=== PATIENT | female | born 1990 | race Caucasian/White ===

== ENCOUNTER 2017-05-24 16:59 | Emergency (ER) | payer SELFPAY ==
[~2017-05-24] VITALS: Ht 157.5 cm; Wt 163.3 kg
[~2017-05-24 16:59] MED LIST: CIPRO 500MG TA500 MG PO; PAROXETINE HCL20 MG PO
[2017-05-24 17:21] LABS: URINE BILIRUBIN - DIPSTICK NEGATIVE (NEG); URINE BLOOD NEGATIVE (NEG)
--- OUTSIDE RECORDS SUMMARY | 2017-05-24 17:40 | External Medical Summary Rpt ---
Author Author , MANSI Tinajero ALMAJOSEY Address Unknown Phone [email or web address] (Mobile Payments) Care Team Providers Care Administrative Support Coordinator Name Role Phone BHAVANI ROMERO, BHAVANI Unavailable Unavailable HEATHER BHAVANI HEATHER, BHAVANI Unavailable Unavailable HEATHER JENNY KRUGER, JENNY Unavailable Unavailable BET ELOISA TER, ELOISA PHAM Unavailable Unavailable [facility], Unavailable Unavailable [facility] COMMUNITY ANESTH OF Unavailable Unavailable [facility], ELIZABETH Unavailable Unavailable [facility] Unavailable Unavailable INC, [facility], Unavailable Unavailable [facility] Unavailable Unavailable IMAGING ASS, [facility], Unavailable Unavailable [facility] Unavailable Unavailable [facility] Unavailable [facility] PICKJAYLYN ORTIZ, Unavailable Unavailable [employer] JR DIANA ABDULLAHI TOD, ABDULLAHI TOD Unavailable Unavailable [id number], Unavailable Unavailable [id number] [email or web address] [facility] Unavailable Unavailable [facility] [email or web address] [facility] Unavailable Unavailable [facility] [email or web address] [facility] Unavailable Unavailable DEPARTMENT, [facility] KELLI CASTELAN, Unavailable Unavailable JOSE DANIEL LINDQUIST Unavailable Unavailable APARNA DUKE, Unavailable Unavailable APARNA DUKE Purpose Continuity of Care Document - 01-27-2009 through 2016 Problems Code Diagnosis DOS Provider Status [id number] ENCOUNTER 04-20-2016 [facility], RN ENDOSCOPY EXAM LLC GENERAL RTN W/O ABNORMAL FIND Z113 ENCOUNTER 04-20-2016 [facility], SCREEN LLC INFECTIONS SEXL MODE TRANSMISSN Z3009 ENCOUNTER 04-20-2016 [facility] OT GENERAL PHYSICIANS GROUP BLINDSTITCH LAPEL PADDER&ADV ICE CONTRACEPT K529 NONINFECTIV 08-12-2015 [facility] E PHYSICIANS GASTROENTER GROUP ITIS & COLITIS UNS M549 DORSALGIA 08-12-2015 [facility] UNSPECIFIED PHYSICIANS GROUP 14946 CALCU 04-16-2015 [facility], GALLBLADD LLC W/OTH CHOLECYST W/O MENTION OBST 55770 CHOLECYSTIT 04-16-2015 COMMUNITY IS, ANESTH OF UNSPECIFIED THE BLUE V7283 OTHER 04-08-2015 [facility] PRE-OPERATI INC VE EXAMINATION 56887 CALCU 03-31-2015 MURALI GALLBLADD MEDICAL W/O MENTION IMAGING ASS CHOLECYST/O BST 45986 ABDOMINAL 03-31-2015 [place], MEDICAL UNSPECIFIED IMAGING ASS SITE 53740 ABDOMINAL 03-31-2015 [facility] RIGHT [facility] UPPER INC QUADRANT 31322 ESOPHAGEAL 03-26-2015 [facility] REFLUX PHYSICIANS GROUP 43322 ABDOMINAL 03-25-2015 [facility] PAIN, [facility] EPIGASTRIC INC V2549 SURVEILLANC 05-23-2014 [facility] PREV CO HEALTH PRSC DEPARTME CONTRACEPT METHOD 94050 GENERALIZED 05-08-2014 [facility] ANXIETY PRIMARY DISORDER CARE CENTER V7231 ROUTINE 04-14-2014 [facility] GYNECOLOGIC CO HEALTH AL DEPARTME EXAMINATION 50000 OBESITY, 01-03-2014 BHAVANI ROMERO UNSPECIFIED 21272 OSTEOARTHRO 01-03-2014 BHAVANI ROMERO S INVLV MX SITES BUT NOT SPEC GEN V0481 NEED 08-12-2009 [facility]/CO PROPHYLACTI HEALTH C CENTRAL VACCINATION BANK ACCT &INOCULATIO N FLU 4019 UNSPECIFIED 03-26-2009 [facility] ESSENTIAL [facility] HYPERTENSIO INC N 49489 CHRONIC 03-26-2009 LAY, TONSILLITIS PETER Manning 4779 ALLERGIC 03-16-2009 ROSANNE RHINITIS PETER Manning CAUSE UNSPECIFIED 1123 CANDIDIASIS 01-27-2009 [facility] OF SKIN PRIMARY AND NAILS CARE CENTERINC 6235 LEUKORRHEA 01-27-2009 [facility] NOT PRIMARY SPECIFIED CARE CENTERINC INFECTIVE V0489 NEED PROPH 01-27-2009 [facility] VACCINATION PRIMARY &INOCULAT CARE OT VIRAL CENTERINC DZ Medications Na ND Rx Da Fi Fi Am Da Di Ph RX Ph St me C No te ll ll ou ys ag ar # ys at rm s nt no ma ic us Or Da si cy ia de te s n re d TR 52 04 11 03 28 28 CO 64 GA Ac IN 54 -2 -1 .0 LO 79 NT ti ES 40 1- 9- 00 NI 29 LE ve SA 24 20 20 AL 0 Y 82 09 09 JA TA 8 NA BL LL R ET AG E PH M TR 00 04 09 02 28 28 CO 64 GA Ac I- 55 -2 -2 .0 LO 79 NT ti SP 59 1- 4- 00 NI 29 LE ve RI 01 20 20 AL 0 Y NT 85 09 09 JA EC 8 NA LL R TA AG BL E ET PH M TR 00 04 07 01 28 28 CO 64 GA Ac I- 55 -2 -1 .0 LO 79 NT ti SP 59 1- 6- 00 NI 29 LE ve RI 01 20 20 AL 0 Y NT 85 09 09 JA EC 8 NA LL R TA AG BL E ET PH M 00 06 07 00 30 7 RI 78 LA Ac 40 -1 -0 .0 TE 87 WS ti 60 8- 2- 00 41 ON ve 35 20 20 AI 80 [address] AR OR M G #3 93 8 00 06 07 01 30 7 RI 78 LA Ac 40 -1 -0 .0 TE 87 WS ti 60 8- 2- 00 41 ON ve 35 20 20 AI 80 [address] AR OR M G #3 93 8 TR 00 04 05 00 28 28 CO 64 GA Ac I- 55 -2 -0 .0 LO 79 NT ti SP 59 1- 7- 00 NI 29 LE ve RI 01 20 20 AL 0 Y NT 85 09 09 JA EC 8 NA LL R TA AG BL E ET PH M 67 04 05 00 60 30 CO 64 GA Ac 76 -2 -0 .0 LO 79 NT ti 70 1- 7- 00 NI 29 LE ve 11 20 20 AL 1 Y 21 09 09 JA 5 NA LL R AG E PH M Immunization Name Date Rout CVX Reac Dose Comm Prov Is Faci e tion ent ider Refu lity Give sed n IIV3 11-0 141 ROBE No DHS/ 4-20 [facility] CO VACC 09 N CO HEAL INE TH SPLI HEAL CENT T TH RAL VIRU DEPA BANK S RTME 0.5 NT ACCT ML DOSA GE IM USE Results Labs Lab Lab Date Result Refere Interp Status Commen Order Detail nces retati t Range on Urinalysis macro (dipstick) panel in Urine (03-05-2017 19:23) Appeara Clear CLEAR complet nce of 017 ed Urine 19:23 Bilirub NEGATIV NEG complet in 017 E ed [Presen 19:23 ce] in Urine by Test strip Erythro SMALL NEG complet cytes 017 ed [Presen 19:23 ce] in Urine Color YELLOW YELLOW complet of 017 ed Urine 19:23 Ketones NEGATIV NEG complet 017 E ed [Presen 19:23 ce] in Urine by Automat ed test strip Leukocy TRACE NEG Abnorma complet te 017 l ed esteras 19:23 e [Presen ce] in Urine by Automat ed test strip Nitrite NEGATIV NEG complet 017 E ed [Presen 19:23 ce] in Urine by Test strip Urobili 0.2 NEG complet nogen 017 ed [Presen 19:23 ce] in Urine by Test strip CHLAMYDIA AND GONORRHEA TESTING (04-14-2014 09:10) Chlamyd NEGATIV complet ia 014 E ed trachom 09:10 atis rRNA [Presen ce] in Unspeci fied specime n by Probe & target amplifi cation method Neisser NEGATIV complet ia 014 E ed gonorrh 09:10 oeae rRNA [Presen ce] in Unspeci fied specime n by Probe & target amplifi cation method CHLAMYDIA AND GONORRHEA TESTING (04-14-2014 09:10) COLLECT D complet OR 014 ALAN ed 09:10 PROCESS CONTROLLER ETHNICI WHITE, complet TY 014 NON-HIS ed 09:10 PANIC KIT 10/23 complet EXPIRAT 014 ed ION 09:10 DATE SYMPTOM YES complet S 014 ed 09:10 REASON REVISIT complet FOR 014 /ANNUAL ed REQUEST 09:10 FAMILY PLANNIN G VISIT SPECIME FEMALE complet N 014 ENDOCER ed SOURCE 09:10 VICAL PREGNAN NO complet T 014 ed 09:10 CHART [id number] complet NUMBER 014 02 ed 09:10 Chlamyd Pending complet ia 014 ed trachom 09:10 atis rRNA [Presen ce] in Unspeci fied specime n by Probe & target amplifi cation method Neisser Pending complet ia 014 ed gonorrh 09:10 oeae rRNA [Presen ce] in Unspeci fied specime n by Probe & target amplifi cation method CHLAMYDIA AND GONORRHEA TESTING (04-22-2013 10:45) Chlamyd NEGATIV complet ia 013 E ed trachom 10:45 atis rRNA [Presen ce] in Unspeci fied specime n by Probe & target amplifi cation method Neisser NEGATIV complet ia 013 E ed gonorrh 10:45 oeae rRNA [Presen ce] in Unspeci fied specime n by Probe & target amplifi cation method CHLAMYDIA AND GONORRHEA TESTING (04-22-2013 10:45) COLLECT D complet OR 013 ALAN ed 10:45 PROCESS CONTROLLER ETHNICI WHITE, complet TY 013 NON-HIS ed 10:45 PANIC KIT complet EXPIRAT 013 3 ed ION 10:45 DATE SYMPTOM NO complet S 013 ed 10:45 REASON REVISIT complet FOR 013 /ANNUAL ed REQUEST 10:45 FAMILY PLANNIN G VISIT SPECIME FEMALE complet N 013 ENDOCER ed SOURCE 10:45 VICAL PREGNAN NO complet T 013 ed 10:45 CHART [id number] complet NUMBER 013 02 ed 10:45 Chlamyd Pending complet ia 013 ed trachom 10:45 atis rRNA [Presen ce] in Unspeci fied specime n by Probe & target amplifi cation method Neisser Pending complet ia 013 ed gonorrh 10:45 oeae rRNA [Presen ce] in Unspeci fied specime n by Probe & target amplifi cation method CHLAMYDIA AND GONORRHEA TESTING (04-16-2012 10:15) Chlamyd NEGATIV complet ia 012 E ed trachom 10:15 atis rRNA [Presen ce] in Unspeci fied specime n by Probe & target amplifi cation method Neisser NEGATIV complet ia 012 E ed gonorrh 10:15 oeae rRNA [Presen ce] in Unspeci fied specime n by Probe & target amplifi cation method CHLAMYDIA AND GONORRHEA TESTING (04-16-2012 10:15) COLLECT D complet OR 012 ALAN ed 10:15 PROCESS CONTROLLER ETHNICI WHITE, complet TY 012 NON-HIS ed 10:15 PANIC KIT 09 complet EXPIRAT 012 ed ION 10:15 DATE SYMPTOM NO complet S 012 ed 10:15 REASON REVISIT complet FOR 012 /ANNUAL ed REQUEST 10:15 FAMILY PLANNIN G VISIT SPECIME FEMALE complet N 012 ENDOCER ed SOURCE 10:15 VICAL PREGNAN NO complet T 012 ed 10:15 CHART [id number] complet NUMBER 012 02 ed 10:15 Chlamyd Pending complet ia 012 ed trachom 10:15 atis rRNA [Presen ce] in Unspeci fied specime n by Probe & target amplifi cation method Neisser Pending complet ia 012 ed gonorrh 10:15 oeae rRNA [Presen ce] in Unspeci fied specime n by Probe & target amplifi cation method Procedures Procedure DOS Code Location Performer Comment IADNA 81588 [facility] PICKLESIM NEISSERIA 6 LLC ER JR DIANA GONORRHOE AE AMPLIFIED PROBE TQ IADNA 68952 [facility] PICKLESIM CHLAMYDIA 6 LLC ER JR DIANA TRACHOMAT IS AMPLIFIED PROBE TQ CYTP C/V 00568 [facility], [facility] AUTO THIN 6 LLC ER JR DIANA LYR PREPJ SCR MNL RESCR PHYS INJECTION J2710 [facility] NEOSTIGMI INC INC NE METHYLSUL FATE UP TO 0.5 MG GLUC BLD 90329 [facility] GLUC MNTR 5 [facility] DEV INC INC CLEARED FDA SPEC HOME USE LAPAROSCO 22272 [facility] ABDULLAHI TOD PY SURG 5 PHYSICIAN CHOLECYST S GROUP ECTOMY ANES 44701 [facility] INTRAPERI 5 ANESTH SHE TONEAL OF THE UPPER BLUE ABDOMEN W/LAPS NOS LEVEL III 13967 [facility], ELOISA TER SURG 5 LLC PATHOLOGY GROSS&ANNA ROSCOPIC EXAM URINE 78496 [facility] TEST INC [place] [address] [facility] ABDOMINAL 5 [facility] REAL INC INC TIME W/IMAGE LIMITED CONTRACEP A4267 [facility] TIVE 4 CO CO SUPPLY HEALTH HEALTH CONDOM DEPARTME DEPARTME MALE EACH CYTP 79707 PICKLESIM PICKLESIM CERV/VAG 4 ER JR DIANA ER JR DIANA AUTO THIN LAYER PREP MNL SCREEN IADNA 81215 [facility] CHLAMYDIA 4 CO CO HEALTH HEALTH TRACHOMAT DEPARTME DEPARTME IS AMPLIFIED PROBE TQ IADNA 37547 [facility] NEISSERIA 4 CO CO [facility] HEALTH GONORRHOE DEPARTME DEPARTME AE AMPLIFIED PROBE TQ IIV3 44975 [facility]/CO [facility] VACCINE 9 HEALTH CO SPLIT [facility] VIRUS 0.5 BANK [place] [address] [facility] INFUSION 9 [facility] THERAPY/P INC INC ROPHYLAXI S /DX 1ST TO 1 HR TONSILLEC 282 [facility] SOURAV 9 [facility] [place] [address] [facility] INFUSION 9 [facility] THERAPY INC INC PROPHYLAX IS/DX EA HOUR TONSILLEC 22863 [facility] LAY TOMY 9 PETER Manning PRIMARY/S ECONDARY AGE 14/> IM ADM 53663 [facility], PRQ ID 9 PRIMARY APARNA R SUBQ/IM CARE NJXS 1 CENTERINC VACCINE Encounters Encounter Start End Date Code Location Performer Type Date PERIODIC 67791 [facility] STONE CARRIE PREVENTIV 6 6 PHYSICIAN E MED EST S GROUP PATIENT 18-39 YRS OFFICE 54193 [facility] OUTPATIEN 5 5 PHYSICIAN T VISIT S GROUP 15 MINUTES [facility] OUTPATIEN INC T OFFICE 04179 [facility] ABDULLAHI TOD CONSULTAT 5 5 PHYSICIAN ION S GROUP NEW/ESTAB PATIENT 40 MIN [facility]OSP[facility] OUTPATIEN INC [facility] OUTPATIEN INC T OFFICE 75193 [facility] ELIZABETH OUTPATIEN 5 5 PHYSICIAN ANNA T VISIT S GROUP 15 MINUTES HOSPITAL [facility] - 5 5 [facility] OUTPATIEN INC T EMERGENCY 00645 SHAGUFTA ELIZABETH DEPT 5 5 PHYSICIAN ANNA VISIT S, PLLC HIGH SEVERITY& THREAT FUNCJ EMERGENCY 89951 [facility] 5 5 [facility] DEPARTMEN INC T VISIT MODERATE SEVERITY OFFICE 23495 [facility] OUTPATIEN 4 4 CO CO T VISIT HEALTH HEALTH 10 DEPARTKY DEPARTKY MINUTES OFFICE 15984 [facility] 4 4 PRIMARY BET T VISIT CARE 15 CENTER MINUTES [facility] 13480 [facility] PREVENTIV 4 4 CO CO E MED EST HEALTH HEALTH PATIENT DEPARTKY DEPARTKY 18-39 YRS OFFICE 47295 [facility] OUTPATIEN 4 4 CO CO T VISIT HEALTH HEALTH 10 DEPARTKY DEPARTKY MINUTES OFFICE 41953 BHAVANI HILTON 4 4 HEATHER HEATHER T VISIT 15 MINUTES [facility]OSPITAL [facility] - 9 9 [facility] OUTPATIEN INC T OFFICE 28374 [facility] OUTPATIEN 9 9 PETER Manning T NEW 45 MINUTES OFFICE 09972 LIDA GUZMAN 9 9 PRIMARY APARNA R T NEW 20 CARE MINUTES [facility]
--- OUTSIDE RECORDS SUMMARY | 2017-05-24 17:40 | External Medical Summary Rpt ---
Author Author , MANSI Tinajero ALMAJOSEY Address Unknown Phone [email or web address] [employer] Care Team Providers Care Cattle Killer Name Role Phone BHAVANI ROMERO, BHAVANI Unavailable Unavailable HEATHER BHAVANI HEATHER, BHAVANI Unavailable Unavailable HEATHER JENNY KRUGER, JENNY Unavailable Unavailable BET ELOISA TER, ELOISA PHAM Unavailable Unavailable [facility], Unavailable Unavailable [facility] COMMUNITY ANESTH OF Unavailable Unavailable [facility], ELIZABETH Unavailable Unavailable [facility] Unavailable Unavailable INC, [facility], Unavailable Unavailable [facility] Unavailable Unavailable IMAGING ASS, [facility], Unavailable Unavailable [facility] Unavailable Unavailable [facility] Unavailable [facility] PICKJAYLYN ORTIZ, Unavailable Unavailable [employer] JR DIANA ABDULLAHI TOD, ABDULLAHI TOD Unavailable Unavailable [id number], Unavailable Unavailable [id number] [employer] [facility] Unavailable Unavailable [facility] HEALTH DEPARTPR [employer] [facility] Unavailable Unavailable [facility] DEPARTPR [employer] [facility] Unavailable Unavailable DEPARTMENT, [employer] [place] [facility] KELLI CASTELAN, Unavailable Unavailable JOSE DANIEL LINDQUIST Unavailable Unavailable APARNA DUKE, Unavailable Unavailable APARNA DUKE Purpose Continuity of Care Document - 01-27-2009 through 2016 Problems Code Diagnosis DOS Provider Status [id number] ENCOUNTER 04-20-2016 [facility], RESTAURANT COOK EXAM LLC GENERAL RTN W/O ABNORMAL FIND Z113 ENCOUNTER 04-20-2016 [facility], SCREEN LLC INFECTIONS SEXL MODE TRANSMISSN Z3009 ENCOUNTER 04-20-2016 [facility] OT GENERAL PHYSICIANS GROUP 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&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 ICE CONTRACEPT K529 NONINFECTIV 08-12-2015 [facility] E PHYSICIANS GASTROENTER GROUP ITIS & COLITIS UNS M549 DORSALGIA 08-12-2015 [facility] UNSPECIFIED PHYSICIANS GROUP 25568 CALCU 04-16-2015 [facility] GALLBLADD LLC W/OTH CHOLECYST W/O MENTION OBST 46318 CHOLECYSTIT 04-16-2015 COMMUNITY IS, ANESTH OF UNSPECIFIED THE BLUE V7283 OTHER 04-08-2015 [facility] PRE-OPERATI INC VE EXAMINATION 23628 CALCU 03-31-2015 [facility] GALLBLADD MEDICAL W/O MENTION IMAGING ASS CHOLECYST/O BST 09336 ABDOMINAL 03-31-2015 [place] PA[place], MEDICAL UNSPECIFIED IMAGING ASS SITE 67455 ABDOMINAL 03-31-2015 [facility] PA[facility] RIGHT [facility] UPPER INC QUADRANT 71664 ESOPHAGEAL 03-26-2015 [facility] REFLUX PHYSICIANS GROUP 96491 ABDOMINAL 03-25-2015 [facility] PAIN, [facility] EPIGASTRIC INC V2549 SURVEILLANC 05-23-2014 [facility] PREV CO HEALTH PRSC DEPARTME CONTRACEPT METHOD 03552 GENERALIZED 05-08-2014 [facility] ANXIETY PRIMARY DISORDER CARE CENTER V7231 ROUTINE 04-14-2014 [facility] GYNECOLOGIC CO HEALTH AL DEPARTME EXAMINATION 36508 OBESITY, 01-03-2014 BHAVANI ROMERO UNSPECIFIED 68011 OSTEOARTHRO 01-03-2014 BHAVANI ROMERO S INVLV MX SITES BUT NOT SPEC GEN V0481 NEED 08-12-2009 [facility]/CO PROPHYLACTI HEALTH C CENTRAL VACCINATION BANK ACCT &INOCULATIO N FLU 4019 UNSPECIFIED 03-26-2009 [facility] ESSENTIAL [facility] HYPERTENSIO INC N 50705 CHRONIC 03-26-2009 LAY, TONSILLITIS PETER Manning 4779 [...] D complet OR 014 ALAN ed 09:10 CATHODE RAY TUBE SALVAGE PROCESSOR ETHNICI WHITE, complet TY 014 NON-HIS ed 09:10 PANIC KIT 10/23 complet EXPIRAT 014 ed ION 09:10 DATE SYMPTOM YES complet S 014 ed 09:10 REASON REVISIT complet FOR 014 /ANNUAL ed REQUEST 09:10 FAMILY PLANNIN G VISIT SPECIME FEMALE complet N 014 ENDOCER ed SOURCE 09:10 VICAL PREGNAN NO complet T 014 ed 09:10 CHART [id number] complet NUMBER 014 02 ed 09:10 Chlamyd [...] D complet OR 013 ALAN ed 10:45 CATHODE RAY TUBE SALVAGE PROCESSOR ETHNICI WHITE, complet TY 013 NON-HIS ed 10:45 PANIC KIT complet EXPIRAT 013 3 ed ION 10:45 DATE SYMPTOM NO complet S 013 ed 10:45 REASON REVISIT complet FOR 013 /ANNUAL ed REQUEST 10:45 FAMILY PLANNIN G VISIT SPECIME FEMALE complet N 013 ENDOCER ed SOURCE 10:45 VICAL PREGNAN NO complet T 013 ed 10:45 CHART [id number] complet NUMBER 013 02 ed 10:45 Chlamyd [...] D complet OR 012 ALAN ed 10:15 CATHODE RAY TUBE SALVAGE PROCESSOR ETHNICI WHITE, complet TY 012 NON-HIS ed 10:15 PANIC KIT 09 complet EXPIRAT 012 ed ION 10:15 DATE SYMPTOM NO complet S 012 ed 10:15 REASON REVISIT complet FOR 012 /ANNUAL ed REQUEST 10:15 FAMILY PLANNIN G VISIT SPECIME FEMALE complet N 012 ENDOCER ed SOURCE 10:15 VICAL PREGNAN NO complet T 012 ed 10:15 CHART [id number] complet NUMBER 012 02 ed 10:15 Chlamyd Pending complet ia 012 ed trachom 10:15 atis rRNA [Presen ce] in Unspeci fied specime n by Probe & target amplifi cation method Neisser Pending complet ia 012 ed gonorrh 10:15 oeae rRNA [Presen ce] in Unspeci fied specime n by Probe & target amplifi cation method Procedures Procedure DOS Code Location Performer Comment IADNA 26510 [facility] PICKLESIM NEISSERIA 6 LLC ER JR DIANA GONORRHOE AE AMPLIFIED PROBE TQ IADNA 46317 [facility], PICKLES[facility] CHLAMYDIA 6 LLC ER JR DIANA TRACHOMAT IS AMPLIFIED PROBE TQ CYTP C/V 19226 [facility], PICKLESIM AUTO THIN 6 LLC ER JR DIANA LYR PREPJ SCR MNL RESCR PHYS INJECTION J2710 [facility] NEOSTIGMI INC INC NE METHYLSUL FATE UP TO 0.5 MG GLUC BLD 82710 [facility] GLUC MNTR 5 [facility] DEV INC INC CLEARED FDA SPEC HOME USE LAPAROSCO 96137 [facility] ABDULLAHI TOD PY SURG 5 PHYSICIAN CHOLECYST S GROUP ECTOMY ANES 42603 [facility] INTRAPERI 5 ANESTH SHE TONEAL OF THE UPPER BLUE ABDOMEN W/LAPS NOS LEVEL III 27697 [facility], ELIOSA TER SURG 5 LLC PATHOLOGY GROSS&ANNA ROSCOPIC EXAM URINE 08788 [facility] TEST INC [place] [address] [facility] ABDOMINAL 5 [facility] REAL INC INC TIME W/IMAGE LIMITED CONTRACEP A4267 [facility] TIVE 4 CO CO SUPPLY HEALTH HEALTH CONDOM DEPARTME DEPARTME MALE EACH CYTP 62409 PICKLESIM PICKLESIM CERV/VAG 4 ER JR DIANA ER JR DIANA AUTO THIN LAYER PREP MNL SCREEN IADNA 56027 [facility] CHLAMYDIA 4 CO CO HEALTH HEALTH TRACHOMAT DEPARTME DEPARTME IS AMPLIFIED PROBE TQ IADNA 30008 [facility] NEISSERIA 4 CO CO [facility] HEALTH GONORRHOE DEPARTME DEPARTME AE AMPLIFIED PROBE TQ IIV3 41820 [facility] VACCINE 9 HEALTH CO SPLIT [facility] VIRUS 0.5 BANK [place] [address] [facility] INFUSION 9 [facility] THERAPY/P INC INC ROPHYLAXI S /DX 1ST TO 1 HR TONSILLEC 282 [facility] SOURAV 9 [facility] [place] [address] [facility] INFUSION 9 [facility] THERAPY INC INC PROPHYLAX IS/DX EA HOUR TONSILLEC 34978 [facility] LAY TOMY 9 PETER Manning PRIMARY/S ECONDARY AGE 14/> IM ADM 55217 [facility], PRQ ID 9 PRIMARY APARNA R SUBQ/IM CARE NJXS 1 CENTERINC VACCINE Encounters Encounter Start End Date Code Location Performer Type Date PERIODIC 06843 [facility] STONE CARRIE PREVENTIV 6 6 PHYSICIAN E MED EST S GROUP PATIENT 18-39 YRS OFFICE 45897 [facility] OUTPATIEN 5 5 PHYSICIAN T VISIT S GROUP 15 MINUTES [facility] 5 [facility] OUTPATIEN INC T OFFICE 43049 [facility] ABDULLAHI TOD CONSULTAT 5 5 PHYSICIAN ION S GROUP NEW/ESTAB PATIENT 40 MIN [facility]OSP[facility] 5 5 [facility] OUTPATIEN INC [facility] 5 [facility] OUTPATIEN INC T OFFICE 81172 [facility] ELIZABETH OUTPATIEN 5 5 PHYSICIAN ANNA T VISIT S GROUP 15 MINUTES HOSPITAL [facility] - 5 5 [facility] OUTPATIEN INC T EMERGENCY 90617 SHAGUFTA [facility] DEPT 5 5 PHYSICIAN ANNA VISIT S, PLLC HIGH SEVERITY& THREAT FUNCJ EMERGENCY 60461 [facility] 5 5 [facility] DEPARTMEN INC T VISIT MODERATE SEVERITY OFFICE 75402 [facility] OUTPATIEN 4 4 CO CO T VISIT HEALTH HEALTH 10 DEPARTPR DEPARTPR MINUTES OFFICE 37771 [facility] 4 4 PRIMARY BET T VISIT CARE 15 CENTER MINUTES [facility] [address] [facility] PREVENTIV 4 4 CO CO E MED EST HEALTH HEALTH PATIENT DEPARTPR DEPARTPR 18-39 YRS OFFICE 00983 [facility] OUTPATIEN 4 4 CO CO T VISIT HEALTH HEALTH 10 DEPARTPR DEPARTPR MINUTES OFFICE 81450 [facility] 4 4 HEATHER HEATHER T VISIT 15 MINUTES [facility]OSPITAL [facility] - 9 9 [facility] OUTPATIEN INC T OFFICE 50718 [facility] OUTPATIEN 9 9 PETER Manning T NEW 45 MINUTES OFFICE 17894 LIDA GUZMAN 9 9 PRIMARY APARNA R T NEW 20 CARE MINUTES [facility]
--- OUTSIDE RECORDS SUMMARY | 2017-05-24 17:41 | External Medical Summary Rpt ---
Author Author , MANSI NAZARIO Address Unknown Phone [email or web address] Care Team Providers Care Hardwood Flooring Specialist Name Role Phone BHAVANI ROMERO, BHAVANI Unavailable Unavailable HEATHER BHAVANI ROMERO, BHAVANI Unavailable Unavailable HEATHER JENNY KERR Unavailable Unavailable SLICK PHAM, ELOISA PHAM Unavailable Unavailable [facility], Unavailable Unavailable [facility] AN[facility] OF Unavailable Unavailable [facility] ANNA, ELIZABETH Unavailable Unavailable [facility] Un[facility] Un[facility], Unavailable Unavailable [facility] Unavailable Unavailable IMAGING ASS, [facility], Unavailable Unavailable [facility] Unavailable Unavailable [facility], [facility] Un[facility] RONALD ORTIZ, Unavailable Unavailable [email or web address] ABDULLAHI ROGER Unavailable Unavailable [id number], Unavailable Unavailable [id number] [email or web address] [facility] Unavailable Unavailable [facility] [email or web address] [facility] Unavailable Unavailable [facility] [email or web address] [facility] Unavailable Unavailable DEPARTMENT, [facility] KELLI ANNELISE, Unavailable Unavailable EKLLIBETH BUTLER, JOSE DANIEL BUTLER Unavailable Unavailable APARNA DUKE, Unavailable Unavailable APARNA DUKE Purpose Continuity of Care Document - 01-27-2009 through 2016 Problems Code Diagnosis DOS Provider Status [id number] ENCOUNTER 04-20-2016 [facility] 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 LLC GENERAL RTN W/O ABNORMAL FIND Z113 ENCOUNTER 04-20-2016 [facility], SCREEN LLC INFECTIONS SEXL MODE TRANSMISSN Z3009 ENCOUNTER 04-20-2016 [facility] OT GENERAL PHYSICIANS GROUP TELEHEALTH CASE MANAGER&ADV ICE CONTRACEPT K529 NONINFECTIV 08-12-2015 [facility] E PHYSICIANS GASTROENTER GROUP ITIS & COLITIS UNS M549 DORSALGIA 08-12-2015 [facility] UNSPECIFIED PHYSICIANS GROUP 03821 CALCU 04-16-2015 [facility] GALLBLADD LLC W/OTH CHOLECYST W/O MENTION OBST 28325 CHOLECYSTIT 04-16-2015 COMMUNITY IS, ANESTH OF UNSPECIFIED THE BLUE V7283 OTHER 04-08-2015 [facility] PRE-OPERATI INC VE EXAMINATION 15981 CALCU 03-31-2015 MURALI GALLBLADD MEDICAL W/O MENTION IMAGING ASS CHOLECYST/O BST 91394 ABDOMINAL 03-31-2015 KENTKALYANIY PAIN, MEDICAL UNSPECIFIED IMAGING ASS SITE 76542 ABDOMINAL 03-31-2015 [facility] RIGHT [facility] UPPER INC QUADRANT 66123 ESOPHAGEAL 03-26-2015 [facility] REFLUX PHYSICIANS GROUP 56508 ABDOMINAL 03-25-2015 [facility] PAIN, [facility] EPIGASTRIC INC V2549 SURVEILLANC 05-23-2014 [facility] PREV CO HEALTH PRSC DEPARTME CONTRACEPT METHOD 99529 GENERALIZED 05-08-2014 [facility] PR[facility] DIS[facility]ARE CENTER V7231 ROUTINE 04-14-2014 [facility] GYNECOLOGIC CO HEALTH AL DEPARTME EXAMINATION 65235 OBESITY, 01-03-2014 BHAVANI HEATHER UNSPECIFIED 37002 OSTEOARTHRO 01-03-2014 BHAVANI ROMERO S INVLV MX SITES BUT NOT SPEC GEN V0481 NEED 08-12-2009 [facility] PROPHYLACTI HEALTH C CENTRAL VACCINATION BANK ACCT &INOCULATIO N FLU 4019 UNSPECIFIED 03-26-2009 [facility]ENTIAL [facility] HYPERTENSIO INC N 71773 CHRONIC 03-26-2009 LAY, TONSILLITIS PETER Manning 4779 [...] NT ACCT ML DOSA GE IM USE Procedures Procedure DOS Code Location Performer Comment IADNA 57423 [facility] PICKLESIM CHLAMYDIA 6 LLC ER JR DIAAN TRACHOMAT IS AMPLIFIED PROBE TQ IADNA 50765 [facility], [facility] NEISSERIA 6 LLC ER JR DIANA GONORRHOE AE AMPLIFIED PROBE TQ CYTP C/V 79794 [facility], [facility] AUTO THIN 6 LLC ER JR DIANA LYR PREPJ SCR MNL RESCR PHYS INJECTION J2710 [facility] NEOSTIGMI INC INC NE METHYLSUL FATE UP TO 0.5 MG GLUC BLD 23107 [facility] GLUC MNTR 5 [facility] DEV INC INC CLEARED FDA SPEC HOME USE LAPAROSCO 72364 [facility] PY SURG 5 [facility] CHOLECYST INC INC ECTOMY ANES 63434 [facility] ANEST[facility] SHE TONEAL OF THE UPPER BLUE ABDOMEN W/LAPS NOS LEVEL III 37503 [facility], ELOISA TER SURG 5 LLC PATHOLOGY GROSS&ANNA ROSCOPIC EXAM URINE 97923 [facility] TEST INC [place] [address] [facility] ABDOMINAL 5 [facility] REAL INC INC TIME W/IMAGE LIMITED CONTRACEP A4267 [facility] TIVE 4 CO CO SUPPLY HEALTH HEALTH CONDOM DEPARTME DEPARTME MALE EACH IADNA 99578 [facility] NEISSERIA 4 CO CO HEALTH HEALTH GONORRHOE DEPARTME DEPARTME AE AMPLIFIED PROBE TQ IADNA 90660 [facility] CHLAMYDIA 4 CO CO HEALTH HEALTH TRACHOMAT DEPARTME DEPARTME IS AMPLIFIED PROBE TQ CYTP 72110 PICKLESIM PICKLESIM CERV/VAG 4 ER JR DIANA ER JR DIANA AUTO THIN LAYER PREP MNL SCREEN IIV3 84075 [facility] VACCINE 9 HEALTH CO SPLIT CENTRAL HEALTH VIRUS 0.5 BANK [place] [address] [facility] INFUSION 9 [facility] THERAPY/P INC INC ROPHYLAXI S /DX 1ST TO 1 HR TONSILLEC 74344 [facility] SOURAV 9 [facility] PRIMARY/S INC INC ECONDARY AGE 12/> [place] [address] [facility] INFUSION 9 [facility] THERAPY INC INC PROPHYLAX IS/DX EA HOUR TONSILLEC 282 [facility] SOURAV 9 [facility] WITHOUT INC INC ADENOIDEC SOURAV IM ADM 93323 [facility] LEILANI, PRQ ID 9 PRIMARY APARNA R SUBQ/IM CARE NJXS 1 CENTERINC VACCINE Encounters Encounter Start End Date Code Location Performer Type Date PERIODIC 35921 [facility] JOSE DANIEL BUTLER PREVENTIV 6 6 PHYSICIAN E MED EST S GROUP PATIENT 18-39 YRS OFFICE 85857 [facility] OUTPATIEN 5 5 PHYSICIAN T VISIT S GROUP 15 MINUTES [facility]OSPITAL [facility] - 5 5 [facility] OUTPATIEN INC T [facility] - 5 5 [facility] OUTPATIEN INC T OFFICE 45399 [facility] ABDULLAHI TOKaren CONSULTAT 5 5 PHYSICIAN ION S GROUP NEW/ESTAB PATIENT 40 MIN [facility]OSPITAL [facility] - 5 5 [facility] OUTPATIEN INC T OFFICE 52514 [facility] ELIZABETH OUTPATIEN 5 5 PHYSICIAN ANNA T VISIT S GROUP 15 MINUTES EMERGENCY 50439 SHAGUFTA [facility] DEPT 5 5 PHYSICIAN ANNA VISIT S, PLL HIGH SEVERITY& THREAT FUNJ EMERGENCY 61347 [facility] 5 5 [facility] DEPARTMEN INC T VISIT MODERATE SEVERITY HOSPITAL [facility] - 5 5 [facility] OUTPATIEN INC T OFFICE 17280 [facility] QIUPATIERENDIRA 4 4 CO CO T VISIT HEALTH HEALTH 10 DEPARTMT DEPARTMT MINUTES OFFICE 80016 [facility] 4 4 PRIMARY BET T VISIT CARE 15 CENTER MINUTES PERIODIC 96089 [facility] PREVENTIV 4 4 CO CO E MED EST HEALTH HEALTH PATIENT DEPARTME DEPARTME 18-39 YRS OFFICE 88185 [facility] QIUPATIERENDIRA 4 4 CO CO T VISIT HEALTH HEALTH 10 DEPARTMT DEPARTME MINUTES OFFICE 35125 BHAVANI HIL[facility] 4 4 HEATHER HEATHER T VISIT 15 MINUTES HOSPITAL [facility] - 9 9 [facility] OUTPATIEN INC T OFFICE 15653 [facility] OUTPATIEN 9 9 PETER VASQUEZ 45 MINUTES OFFICE 95216 L[facility] GUZMAN 9 9 PRIMARY APARNA VASQUEZ 20 [facility]
--- OUTSIDE RECORDS SUMMARY | 2017-05-24 17:41 | External Medical Summary Rpt ---
Author Author , MANSI NAZARIO Address Unknown Phone [email or web address] Care Team Providers Care Patient Services Coordinator Name Role Phone BHAVANI ROMERO, BHAVANI Unavailable Unavailable HEATHER BHAVANI ROMERO, BHAVANI Unavailable Unavailable HEATHER JENNY KERR Unavailable Unavailable SLICK PHAM, ELOISA PHAM Unavailable Unavailable [facility], Unavailable Unavailable [facility] COMMUNITY ANESTH OF Unavailable Unavailable [facility] ANNA, ELIZABETH Unavailable Unavailable [facility] Un[facility] Un[facility] INC, [facility], Unavailable Unavailable [facility] Unavailable Unavailable IMAGING ASS, [facility], Unavailable Unavailable [facility] Unavailable Unavailable [facility], [facility] Un[facility] RONALD ORTIZ, Unavailable Unavailable [employer] ABDULLAHI ROGER Unavailable Unavailable [id number], Unavailable Unavailable [id number] [employer] [facility] Unavailable Unavailable [facility] [employer] [facility] Unavailable Unavailable [facility] [employer] [facility] Unavailable Unavailable [facility], [facility] KELLI ANNELISE, Unavailable Unavailable KELLIBETH BUTLER, JOSE DANIEL BUTLER Unavailable Unavailable APARNA DUKE, Unavailable Unavailable APARNA DUKE Purpose Continuity of Care Document - 01-27-2009 through 2016 Problems Code Diagnosis DOS Provider Status [id number] ENCOUNTER 04-20-2016 [facility] 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 OT GENERAL PHYSICIANS GROUP UNDERWEAR HEMMER&ADV ICE CONTRACEPT K529 NONINFECTIV 08-12-2015 [facility] E PHYSICIANS GASTROENTER GROUP ITIS & COLITIS UNS M549 DORSALGIA 08-12-2015 [facility] UNSPECIFIED PHYSICIANS GROUP 31394 CALCU 04-16-2015 [facility]ALL[facility]ADD LLC W/OTH CHOLECYST W/O MENTION OBST 22465 CHOLECYSTIT 04-16-2015 COMMUNITY IS, ANESTH OF UNSPECIFIED THE BLUE V7283 OTHER 04-08-2015 [facility] PRE-OPERATI INC VE EXAMINATION 82928 CALCU 03-31-2015 M[facility] GALLBLADD MEDICAL W/O MENTION IMAGING ASS CHOLECYST/O BST 97742 ABDOMINAL 03-31-2015 KENTKALYANIY PAIN, MEDICAL UNSPECIFIED IMAGING ASS SITE 14002 ABDOMINAL 03-31-2015 [facility] PA[facility] RIGHT [facility] UPPER INC QUADRANT 31060 ESOPHAGEAL 03-26-2015 [facility] REFLUX PHYSICIANS GROUP 33648 ABDOMINAL 03-25-2015 [facility] PAIN, [facility] EPIGASTRIC INC V2549 SURVEILLANC 05-23-2014 [facility] PREV CO HEALTH PRSC DEPARTME CONTRACEPT METHOD 28159 GENERALIZED 05-08-2014 [facility] V7231 ROUTINE 04-14-2014 [facility] GYNECOLOG[facility] CO HEALTH AL DEPARTME EXAMINATION 30362 OBESITY, 01-03-2014 BHAVANI HEATHER UNSPECIFIED 44857 OSTEOARTHRO 01-03-2014 BHAVANI ROMERO S INVLV MX SITES BUT NOT SPEC GEN V0481 NEED 08-12-2009 [facility] PROPHYLACTI HEALTH C CENTRAL VACCINATION BANK ACCT &INOCULATIO N FLU 4019 UNSPECIFIED 03-26-2009 [facility] HYPERTENSIO INC N 42443 CHRONIC 03-26-2009 LAY, TONSILLITIS PETER Manning 4779 [...] Procedure DOS Code Location Performer Comment IADNA 84828 [facility] PICK[facility] CHLAMYDIA 6 LLC ER JR DIANA TRACHOMAT IS AMPLIFIED PROBE TQ IADNA 58532 [facility], PICK[facility] NEISSERIA 6 LLC ER JR DIANA GONORRHOE AE AMPLIFIED PROBE TQ CYTP C/V 68581 [facility], P[facility] AUTO THIN 6 LLC ER JR DIANA LYR PREPJ SCR MNL RESCR PHYS INJECTION J2710 [facility] NEOSTIGMI INC INC NE METHYLSUL FATE UP TO 0.5 MG GLUC BLD 45251 [facility] GLUC MNTR 5 [facility] DEV INC INC CLEARED FDA SPEC HOME USE LAPAROSCO 26976 [facility] PY SURG 5 [facility] CHOLECYST INC INC ECTOMY ANES 89259 [facility] ANESTH SHE TONEAL OF THE UPPER BLUE ABDOMEN W/LAPS NOS LEVEL III 35555 [facility] ELOISA TER SURG 5 LLC PATHOLOGY GROSS&ANNA ROSCOPIC EXAM URINE 16729 [facility] TEST INC [place] [address] [facility] ABDOMINAL 5 [facility] REAL INC INC TIME W/IMAGE LIMITED CONTRACEP A4267 [facility] TIVE 4 CO CO SUPPLY HEALTH HEALTH CONDOM DEPARTME DEPARTME MALE EACH IADNA 98500 [facility] NEISSERIA 4 CO CO HEALTH HEALTH GONORRHOE DEPARTME DEPARTME AE AMPLIFIED PROBE TQ IADNA 58212 [facility] CHLAMYDIA 4 CO CO HEALTH HEALTH TRACHOMAT DEPARTME DEPARTME IS AMPLIFIED PROBE TQ CYTP 93720 PICKLESIM PICKLESIM CERV/VAG 4 ER JR DIANA ER JR DIANA AUTO THIN LAYER PREP MNL SCREEN IIV3 78988 [facility] VACCINE 9 HEALTH CO SPLIT CENTRAL HEALTH VIRUS 0.5 BANK [place] [address] [facility] INFUSION 9 [facility] THERAPY/P INC INC ROPHYLAXI S /DX 1ST TO 1 HR TONSILLEC 57595 [facility] SOURAV 9 [facility] PRIMARY/S INC INC ECONDARY AGE 12/> [place] [address] [facility] INFUSION 9 [facility] THERAPY INC INC PROPHYLAX IS/DX EA HOUR TONSILLEC 282 [facility] SOURAV 9 [facility] WITHOUT INC INC ADENOIDEC SOURAV IM ADM 59369 [facility] LEILANI, PRQ ID 9 PRIMARY APARNA R SUBQ/IM CARE NJXS 1 CENTERINC VACCINE Encounters Encounter Start End Date Code Location Performer Type Date PERIODIC 02468 [facility] JOSE DANIEL BUTLER PREVENTIV 6 6 PHYSICIAN E MED EST S GROUP PATIENT 18-39 YRS OFFICE 14757 [facility] OUTPATIEN 5 5 PHYSICIAN T VISIT S GROUP 15 MINUTES [facility]OSPITAL [facility] - 5 5 [facility] OUTPATIEN INC T [facility]OSPITAL [facility] - 5 5 [facility] OUTPATIEN INC T OFFICE 09097 [facility] ABDULLAHI TOKaren CONSULTAT 5 5 PHYSICIAN ION S GROUP NEW/ESTAB PATIENT 40 MIN [facility]OSPITAL [facility] - 5 5 [facility] OUTPATIEN INC T OFFICE 17172 [facility] ELIZABETH OUTPATIEN 5 5 PHYSICIAN ANNA T VISIT S GROUP 15 MINUTES EMERGENCY 48028 SHAGUFTA [facility] DEPT 5 5 PHYSICIAN ANNA VISIT S, PLL HIGH SEVERITY& THREAT FUNJ EMERGENCY 81784 [facility] 5 5 [facility] DEPARTMEN INC T VISIT MODERATE SEVERITY [facility]OSPITAL [facility] - 5 5 [facility] OUTPATIEN INC T OFFICE 45743 [facility] 4 4 CO CO T VISIT HEALTH HEALTH 10 DEPARTAK DEPARTAK MINUTES OFFICE 79708 [facility] 4 4 PRIMARY BET T VISIT CARE 15 CENTER MINUTES PERIODIC 39467 [facility] PREVENTIV 4 4 CO CO E MED EST HEALTH HEALTH PATIENT DEPARTME DEPARTME 18-39 YRS OFFICE 15341 [facility] 4 4 CO CO T VISIT HEALTH HEALTH 10 DEPARTAK DEPARTME MINUTES OFFICE 81209 BH[facility] 4 4 HEATHER HEATHER T VISIT 15 MINUTES HOSPITAL [facility] - 9 9 [facility] OUTPATIEN INC T OFFICE 41019 [facility] OUTPATIEN 9 9 [facility] VASQUEZ 45 MINUTES OFFICE 29403 [facility] GUZMAN 9 9 PRIMARY APARNA VASQUEZ 20 [facility]
[2017-05-24 17:42] LABS: LYMPH # 4.2 K/mm3 (0.7-4.5); LYMPH % 32.8 % (10-50.0)
--- OUTSIDE RECORDS SUMMARY | 2017-05-24 17:42 | External Medical Summary Rpt ---
Author Author [facility] Villegas, [employer] Organization [employer] Address Unknown Phone Unavailable Results Urinalysis macro (dipstick) panel in Urine Observa Value Referen Units Interpr Notes Date tion ce etation Range Appeara Clear CLEAR No No No March 05 nce of informa informa informa 2016 Urine tion in tion in tion in 7:23 PM source source source data data data Bilirub NEGATIV NEG No No No March 05 in E informa informa informa 2016 [Presen tion in tion in tion in 7:23 PM ce] in source source source Urine data data data by Test strip Erythro SMALL NEG No No No March 05 cytes informa informa informa 2016 [Presen tion in tion in tion in 7:23 PM ce] in source source source Urine data data data Color YELLOW YELLOW No No No March 05 of informa informa informa 2017 Urine tion in tion in tion in 7:23 PM source source source data data data Glucose NEG No No No March 05 [Mass/vol informati informati informati 2016 7:23 ume] in on in on in on in PM Urine by source source source Test data data data strip Ketones NEGATIV NEG mg/dL No No March 05 E informa informa 2016 [Presen tion in tion in 7:23 PM ce] in source source Urine data data by Automat ed test strip pH of 5.0 - 8.5 No Normal No March 05 Urine informati informati 2016 7:23 on in on in PM source source data data Protein NEG mg/dL High No March 05 [Mass/vol informati 2016 7:23 ume] in on in PM Urine by source Automated data test strip Specific 1.005 - No Normal No March 05 gravity 1.030 informati informati 2016 7:23 of Urine on in on in PM source source data data Leukocy TRACE NEG No Abnorma No March 05 te informa l informa 2017 esteras tion in tion in 7:23 PM e source source [Presen data data ce] in Urine by Automat ed test strip Nitrite NEGATIV NEG No No No March 05 E informa informa informa 2016 [Presen tion in tion in tion in 7:23 PM ce] in source source source Urine data data data by Test strip Urobili 0.2 NEG E.U./dL No No March 05 nogen informa informa 2016 [Presen tion in tion in 7:23 PM ce] in source source Urine data data by Test strip CHLAMYDIA AND GONORRHEA TESTING Observa Value Referen Units Interpr Notes Date tion ce etation Range COLLECT D No No No No Apr 14 OR ALAN informa informa informa informa 2013 PR INTERNSHIP tion in tion in tion in tion in 9:10 AM source source source source data data data data ETHNICI WHITE, No No No No Apr 14 TY NON-HIS informa informa informa informa 2014 PANIC tion in tion in tion in tion in 9:10 AM source source source source data data data data KIT 10/23 No No No No Apr 14 EXPIRAT informa informa informa informa 2014 ION tion in tion in tion in tion in 9:10 AM DATE source source source source data data data data SYMPTOM YES No No No No Apr 14 S informa informa informa informa 2014 tion in tion in tion in tion in 9:10 AM source source source source data data data data REASON REVISIT No No No No Apr 14 FOR /ANNUAL informa informa informa informa 2014 REQUEST FAMILY tion in tion in tion in tion in 9:10 AM source source source source PLANNIN data data data data G VISIT SPECIME FEMALE No No No No Apr 14 N ENDOCER informa informa informa informa 2014 SOURCE VICAL tion in tion in tion in tion in 9:10 AM source source source source data data data data PREGNAN NO No No No No Apr 14 T informa informa informa informa 2014 tion in tion in tion in tion in 9:10 AM source source source source data data data data CHART [id number] No No No No Apr 14 NUMBER 02 informa informa informa informa 2014 tion in tion in tion in tion in 9:10 AM source source source source data data data data Chlamyd NEGATIV No No No NEGATIV Apr 14 ia E informa informa informa E 2014 trachom tion in tion in tion in RESULT= 9:10 AM atis source source source WITHIN rRNA data data data NORMAL [Presen ce] in LIMITSP Unspeci OSITIVE fied specime RESULT= n by Probe & ABNORMA target LEQUIVO ILIANA amplifi RESULT= cation method INDETER MINATEU NSATISF ACTORY RESULT= INVALID Neisser NEGATIV No No No NEGATIV Apr 14 ia E informa informa informa E 2014 gonorrh tion in tion in tion in RESULT= 9:10 AM oeae source source source WITHIN rRNA data data data NORMAL [Presen ce] in LIMITSP Unspeci OSITIVE fied specime RESULT= n by Probe & ABNORMA target LEQUIVO ILIANA amplifi RESULT= cation method INDETER MINATEU NSATISF ACTORY RESULT= INVALID THE APTIMA COMBO 2 ASSAY IS NOT INTENDE D FOR THE EVALUAT ION OF SUSPECT EDSEXUA L ABUSE OR FOR OTHER MEDICO- LEGAL INDICAT IONS. FOR THOSE PATIENT S FORWHOM A FALSE POSITIV E RESULT MAY HAVE ADVERSE PSYCHO- SOCIAL IMPACT, [facility] NG.\.br \This report contain s patient informa tion that must be protect ed in accorda nce with the Health Insuran ce Portabi lity and Account ability Act. CHLAMYDIA AND GONORRHEA TESTING Observa Value Referen Units Interpr Notes Date tion ce etation Range COLLECT D No No No No Apr 14 OR ALAN informa informa informa informa 2013 PR INTERNSHIP tion in tion in tion in tion in 9:10 AM source source source source data data data data ETHNICI WHITE, No No No No Apr 14 TY NON-HIS informa informa informa informa 2014 PANIC tion in tion in tion in tion in 9:10 AM source source source source data data data data KIT 10/23 No No No No Apr 14 EXPIRAT informa informa informa informa 2014 ION tion in tion in tion in tion in 9:10 AM DATE source source source source data data data data SYMPTOM YES No No No No Apr 14 S informa informa informa informa 2014 tion in tion in tion in tion in 9:10 AM source source source source data data data data REASON REVISIT No No No No Apr 14 FOR /ANNUAL informa informa informa informa 2014 REQUEST FAMILY tion in tion in tion in tion in 9:10 AM source source source source PLANNIN data data data data G VISIT SPECIME FEMALE No No No No Apr 14 N ENDOCER informa informa informa informa 2014 SOURCE VICAL tion in tion in tion in tion in 9:10 AM source source source source data data data data PREGNAN NO No No No No Apr 14 T informa informa informa informa 2014 tion in tion in tion in tion in 9:10 AM source source source source data data data data CHART [id number] No No No No Apr 14 NUMBER 02 informa informa informa informa 2014 tion in tion in tion in tion in 9:10 AM source source source source data data data data Chlamyd Pending No No No No Apr 14 ia informa informa informa informa 2014 trachom tion in tion in tion in tion in 9:10 AM atis source source source source rRNA data data data data [Presen ce] in Unspeci fied specime n by Probe & target amplifi cation method Neisser Pending No No No \.br\Apr 14 ia informa informa informa is 2014 gonorrh tion in tion in tion in report 9:10 AM oeae source source source contain rRNA data data data s [Presen patient ce] in Unspeci informa fied tion specime that n by must be Probe & target protect ed in amplifi accorda cation nce method with the Health Insuran ce Portabi lity and Account ability Act. CHLAMYDIA AND GONORRHEA TESTING Observa Value Referen Units Interpr Notes Date tion ce etation Range COLLECT D No No No No Apr 22 OR ALAN informa informa informa informa 2013 PR INTERNSHIP tion in tion in tion in tion in 10:45 source source source source AM data data data data ETHNICI WHITE, No No No No Apr 22 TY NON-HIS informa informa informa informa 2013 PANIC tion in tion in tion in tion in 10:45 source source source source AM data data data data KIT No No No No Apr 22 EXPIRAT 3 informa informa informa informa 2013 ION tion in tion in tion in tion in 10:45 DATE source source source source AM data data data data SYMPTOM NO No No No No Apr 22 S informa informa informa informa 2013 tion in tion in tion in tion in 10:45 source source source source AM data data data data REASON REVISIT No No No No Apr 22 FOR /ANNUAL informa informa informa informa 2013 REQUEST FAMILY tion in tion in tion in tion in 10:45 source source source source AM PLANNIN data data data data G VISIT SPECIME FEMALE No No No No Apr 22 N ENDOCER informa informa informa informa 2013 SOURCE VICAL tion in tion in tion in tion in 10:45 source source source source AM data data data data PREGNAN NO No No No No Apr 22 T informa informa informa informa 2013 tion in tion in tion in tion in 10:45 source source source source AM data data data data CHART [id number] No No No No Apr 22 NUMBER 02 informa informa informa informa 2013 tion in tion in tion in tion in 10:45 source source source source AM data data data data Chlamyd NEGATIV No No No NEGATIV Apr 22 ia E informa informa informa E 2013 trachom tion in tion in tion in RESULT= 10:45 atis source source source WITHIN AM rRNA data data data NORMAL [Presen ce] in LIMITSP Unspeci OSITIVE fied specime RESULT= n by Probe & ABNORMA target LEQUIVO ILIANA amplifi RESULT= cation method INDETER MINATEU NSATISF ACTORY RESULT= INVALID Neisser NEGATIV No No No NEGATIV Apr 22 ia E informa informa informa E 2013 gonorrh tion in tion in tion in RESULT= 10:45 oeae source source source WITHIN AM rRNA data data data NORMAL [Presen ce] in LIMITSP Unspeci OSITIVE fied specime RESULT= n by Probe & ABNORMA target LEQUIVO ILIANA amplifi RESULT= cation method INDETER MINATEU NSATISF ACTORY RESULT= INVALID THE APTIMA COMBO 2 ASSAY IS NOT INTENDE D FOR THE EVALUAT ION OF SUSPECT EDSEXUA L ABUSE OR FOR OTHER MEDICO- LEGAL INDICAT IONS. FOR THOSE PATIENT S FORWHOM A FALSE POSITIV E RESULT MAY HAVE ADVERSE PSYCHO- SOCIAL IMPACT, THE [facility] MM[facility] RETESTI NG.\.br \This report contain s patient informa tion that must be protect ed in accorda nce with the Health Insuran ce Portabi lity and Account ability Act. CHLAMYDIA AND GONORRHEA TESTING Observa Value Referen Units Interpr Notes Date tion ce etation Range COLLECT D No No No No Apr 22 OR ALAN informa informa informa informa 2013 PR INTERNSHIP tion in tion in tion in tion in 10:45 source source source source AM data data data data ETHNICI WHITE, No No No No Apr 22 TY NON-HIS informa informa informa informa 2013 PANIC tion in tion in tion in tion in 10:45 source source source source AM data data data data KIT No No No No Apr 22 EXPIRAT 3 informa informa informa informa 2013 ION tion in tion in tion in tion in 10:45 DATE source source source source AM data data data data SYMPTOM NO No No No No Apr 22 S informa informa informa informa 2013 tion in tion in tion in tion in 10:45 source source source source AM data data data data REASON REVISIT No No No No Apr 22 FOR /ANNUAL informa informa informa informa 2013 REQUEST FAMILY tion in tion in tion in tion in 10:45 source source source source AM PLANNIN data data data data G VISIT SPECIME FEMALE No No No No Apr 22 N ENDOCER informa informa informa informa 2013 SOURCE VICAL tion in tion in tion in tion in 10:45 source source source source AM data data data data PREGNAN NO No No No No Apr 22 T informa informa informa informa 2013 tion in tion in tion in tion in 10:45 source source source source AM data data data data CHART [id number] No No No No Apr 22 NUMBER 02 informa informa informa informa 2013 tion in tion in tion in tion in 10:45 source source source source AM data data data data Chlamyd Pending No No No No Apr 22 ia informa informa informa informa 2013 trachom tion in tion in tion in tion in 10:45 atis source source source source AM rRNA data data data data [Presen ce] in Unspeci fied specime n by Probe & target amplifi cation method Neisser Pending No No No \.br\Apr 22 ia informa informa informa is 2013 gonorrh tion in tion in tion in report 10:45 oeae source source source contain AM rRNA data data data s [Presen patient ce] in Unspeci informa fied tion specime that n by must be Probe & target protect ed in amplifi accorda cation nce method with the Health Insuran ce Portabi lity and Account ability Act. CHLAMYDIA AND GONORRHEA TESTING Observa Value Referen Units Interpr Notes Date tion ce etation Range COLLECT D No No No No Apr 16 OR ALAN informa informa informa informa 2012 PR INTERNSHIP tion in tion in tion in tion in 10:15 source source source source AM data data data data ETHNICI WHITE, No No No No Apr 16 TY NON-HIS informa informa informa informa 2012 PANIC tion in tion in tion in tion in 10:15 source source source source AM data data data data KIT 06/20 No No No No Apr 16 EXPIRAT informa informa informa informa 2012 ION tion in tion in tion in tion in 10:15 DATE source source source source AM data data data data SYMPTOM NO No No No No Apr 16 S informa informa informa informa 2012 tion in tion in tion in tion in 10:15 source source source source AM data data data data REASON REVISIT No No No No Apr 16 FOR /ANNUAL informa informa informa informa 2012 REQUEST FAMILY tion in tion in tion in tion in 10:15 source source source source AM PLANNIN data data data data G VISIT SPECIME FEMALE No No No No Apr 16 N ENDOCER informa informa informa informa 2012 SOURCE VICAL tion in tion in tion in tion in 10:15 source source source source AM data data data data PREGNAN NO No No No No Apr 16 T informa informa informa informa 2012 tion in tion in tion in tion in 10:15 source source source source AM data data data data CHART [id number] No No No No Apr 16 NUMBER 02 informa informa informa informa 2012 tion in tion in tion in tion in 10:15 source source source source AM data data data data Chlamyd NEGATIV No No No NEGATIV Apr 16 ia E informa informa informa E 2012 trachom tion in tion in tion in RESULT= 10:15 atis source source source WITHIN AM rRNA data data data NORMAL [Presen ce] in LIMITSP Unspeci OSITIVE fied specime RESULT= n by Probe & ABNORMA target LEQUIVO ILIANA amplifi RESULT= cation method INDETER MINATEU NSATISF ACTORY RESULT= INVALID Neisser NEGATIV No No No NEGATIV Apr 16 ia E informa informa informa E 2012 gonorrh tion in tion in tion in RESULT= 10:15 oeae source source source WITHIN AM rRNA data data data NORMAL [Presen ce] in LIMITSP Unspeci OSITIVE fied specime RESULT= n by Probe & ABNORMA target LEQUIVO ILIANA amplifi RESULT= cation method INDETER MINATEU NSATISF ACTORY RESULT= INVALID THE APTIMA COMBO 2 ASSAY IS NOT INTENDE D FOR THE EVALUAT ION OF SUSPECT EDSEXUA L ABUSE OR FOR OTHER MEDICO- LEGAL INDICAT IONS. FOR THOSE PATIENT S FORWHOM A FALSE POSITIV E RESULT MAY HAVE ADVERSE PSYCHO- SOCIAL IMPACT, [facility] NG.\.br \This report contain s patient informa tion that must be protect ed in accorda nce with the Health Insuran ce Portabi lity and Account ability Act. CHLAMYDIA AND GONORRHEA TESTING Observa Value Referen Units Interpr Notes Date tion ce etation Range COLLECT D No No No No Apr 16 OR ALAN informa informa informa informa 2012 PR INTERNSHIP tion in tion in tion in tion in 10:15 source source source source AM data data data data ETHNICI WHITE, No No No No Apr 16 TY NON-HIS informa informa informa informa 2012 PANIC tion in tion in tion in tion in 10:15 source source source source AM data data data data KIT 06/20 No No No No Apr 16 EXPIRAT informa informa informa informa 2012 ION tion in tion in tion in tion in 10:15 DATE source source source source AM data data data data SYMPTOM NO No No No No Apr 16 S informa informa informa informa 2012 tion in tion in tion in tion in 10:15 source source source source AM data data data data REASON REVISIT No No No No Apr 16 FOR /ANNUAL informa informa informa informa 2012 REQUEST FAMILY tion in tion in tion in tion in 10:15 source source source source AM PLANNIN data data data data G VISIT SPECIME FEMALE No No No No Apr 16 N ENDOCER informa informa informa informa 2012 SOURCE VICAL tion in tion in tion in tion in 10:15 source source source source AM data data data data PREGNAN NO No No No No Apr 16 T informa informa informa informa 2012 tion in tion in tion in tion in 10:15 source source source source AM data data data data CHART [id number] No No No No Apr 16 NUMBER 02 informa informa informa informa 2012 tion in tion in tion in tion in 10:15 source source source source AM data data data data Chlamyd Pending No No No No Apr 16 ia informa informa informa informa 2012 trachom tion in tion in tion in tion in 10:15 atis source source source source AM rRNA data data data data [Presen ce] in Unspeci fied specime n by Probe & target amplifi cation method Neisser Pending No No No \.br\Apr 16 ia informa informa informa is 2012 gonorrh tion in tion in tion in report 10:15 oeae source source source contain AM rRNA data data data s [Presen patient ce] in Unspeci informa fied tion specime that n by must be Probe & target protect ed in amplifi accorda cation nce method with the Health Insuran ce Portabi lity and Account ability Act.
--- OUTSIDE RECORDS SUMMARY | 2017-05-24 17:42 | External Medical Summary Rpt ---
[...] OR ALAN informa informa informa informa 2013 SCHEDULE MANAGER tion in tion in tion in tion [...] source source data data data data CHART [id number] No No No No Apr 14 NUMBER [...] MAY HAVE ADVERSE PSYCHO- SOCIAL IMPACT, [facility].\.br \This report contain s patient informa tion that must be protect ed in accorda nce with the Health Insuran ce Portabi lity and Account ability Act. CHLAMYDIA AND GONORRHEA TESTING Observa Value Referen Units Interpr Notes Date tion ce etation Range COLLECT D No No No No Apr 14 OR ALAN informa informa informa informa 2013 SCHEDULE MANAGER tion in tion in tion in tion [...] source source data data data data CHART [id number] No No No No Apr 14 NUMBER [...] OR ALAN informa informa informa informa 2013 SCHEDULE MANAGER tion in tion in tion in tion [...] source AM data data data data CHART [id number] No No No No Apr 22 NUMBER [...] OR ALAN informa informa informa informa 2013 SCHEDULE MANAGER tion in tion in tion in tion [...] source AM data data data data CHART [id number] No No No No Apr 22 NUMBER [...] OR ALAN informa informa informa informa 2012 SCHEDULE MANAGER tion in tion in tion in tion [...] source AM data data data data CHART [id number] No No No No Apr 16 NUMBER [...] MAY HAVE ADVERSE PSYCHO- SOCIAL IMPACT, [facility] NG.\.br \This report contain s patient informa tion that must be protect ed in accorda nce with the Health Insuran ce Portabi lity and Account ability Act. CHLAMYDIA AND GONORRHEA TESTING Observa Value Referen Units Interpr Notes Date tion ce etation Range COLLECT D No No No No Apr 16 OR ALAN informa informa informa informa 2012 SCHEDULE MANAGER tion in tion in tion in tion [...] source AM data data data data CHART [id number] No No No No Apr 16 NUMBER [...]
--- OUTSIDE RECORDS SUMMARY | 2017-05-24 17:42 | External Medical Summary Rpt ---
Author Author , GEORGETTE NAZARIO Address Unknown Phone [email or web address] Immunization Name Date Rout CVX Reac Dose Comm Prov Is Faci e tion ent ider Refu lity Give sed n Hep 03-2 8 999 Hist H201 No H201 B, 5-20 oric ped/ 04 al adol Info rmat ion - Sour ce Unsp ecif ied Hep 01-2 8 999 Hist H201 No H201 B, 1-20 oric ped/ 04 al adol Info rmat ion - Sour ce Unsp ecif ied Td 08-2 9 999 Hist H201 No H201 (mario 6-20 oric lt), 03 al Info adso rmat rbed ion - Sour ce Unsp ecif ied Hep 08-2 8 999 Hist H201 No H201 B, 6-20 oric ped/ 03 al adol Info rmat ion - Sour ce Unsp ecif ied MMR 12-0 3 999 Hist H201 No H201 4-19 oric 96 al Info rmat ion - Sour ce Unsp ecif ied DTP 12-0 1 999 Hist H201 No H201 4-19 oric 96 al Info rmat ion - Sour ce Unsp ecif ied
--- OUTSIDE RECORDS SUMMARY | 2017-05-24 17:42 | External Medical Summary Rpt ---
Author Author , GEORGETTE NAZARIO Address Unknown Phone [email or web address] Immunization Name Date Rout CVX Reac Dose [...]
[2017-05-24 18:02] LABS: HEMOGLOBIN 12.9 g/dL (12.2-16.2)
[2017-05-24 18:27] LABS: URINE SQUAMOUS CELLS 20-50 #/hpf (0-5)
[2017-05-24] MEDS ORDERED: NEXIUM40 MG PO (18:59)
--- NOTE | 2017-05-24 18:59 | Emergency Room Report ---
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 N Clinical Suspician of Infection? N Mental Status: 1 - Regular (Normal Baseline) Sepsis Risk:Low Sepsis Risk Have you (or family members/close friends) recently traveled outside the [place]? N If Yes, where/when: Have you had exposure to infectious disease within the past month? TB? Other? Specify: Source patient, RN notes reviewed, family, RN/MD Exam Limitations no limitations Comment This is a 27-year-old feel patient with gastric pain, previously diagnosed with gastroesophageal reflux disease/had a hernia/gastritis, not taking her Nexium, radiating to LEFT shoulder, for the past 3 months. ALLERGIES Coded Allergies: sulfamethoxazole (05/24/17) trimethoprim (05/24/17) Home Medications Reported Medications PAROXETINE HCL (Paroxetine Hcl) 20 MG PO DAILY #30 TAB History Medical History General CAD? No Angina: No IA: No Hypertension? No Hyperlipidemia? No CHF? No DVT? No PE? No COPD? No Asthma? No Anemia? No GERD? No Gastric ulcers? No GI Bleed? No Hernia? No Thyroid Problems? No Hypothyroidism? No CVA? No Seizures? No Diabetes? No Renal Insuffiency? No End Stage Renal Disease? No UTI? No Stones? No BPH? No GB Disease: Yes Nephritic Syndrome? No Asplenia? No Hepatitis? No Sickle Cell Disease? No Arthritis? No Migraines? No Cataracts? No Glaucoma? No MRSA? No HIV? No TB? No Anxiety? No Depression? No Cancer? 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 Family History Family Hx Diabetes Yes CAD No Hypertension Yes Hyperlipidemia No Cancer Yes TB No Social History Smoking Hx Smoker: Unknown if Ever Smoked Tobacco: No Type N/A Packs/day N/A Are you/the child exposed to second-hand smoke: No Alcohol Alcohol: No Review of Systems All Other Systems Reviewed and Negative Gastrointestinal abdominal pain (The gastric area) Musculoskeletal joint pain (LEFT shoulder) Physical Exam Vital Signs Vital Signs Date Time Temp Pulse Resp B/P Pulse O2 O2 Flow FiO2 Ox Delivery Rate 05/24 1910 91 18 125/85 98 05/24 1702 99.0 95 16 98 General Appearance normal appearance, WD/WN, no apparent distress Neck normal inspection, non-tender, supple, full range of motion Respiratory Status Yes: trachea midline, chest symmetrical, non tender chest. No: respiratory distress. Lung Sounds bilateral: normal breath sounds, lungs clear. 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 No Comment On reevaluation patient appears medically stable, clinically improving. Advised patient to follow-up with Dr. Fabian Isabel for mandatory reevaluation within the next 2-3 days. Will restart patient's prescription for PPIs, Nexium, as well as, at this time. Results/Orders Laboratory Tests 05/24/17 1725: Creatine Kinase 176, CK-MB (CK-2) Rel Index 0.3, CK and CKMB Interp < 0.5, Troponin I < 0.02 05/24/17 172: Sodium 138, Potassium 4.4, Chloride 104, Carbon Dioxide 28, BUN 17, Creatinine 0.6, Estimated Creat Clear 369 H, Estimated GFR (MDRD) 122, Glucose 91, Calcium 9.1, Total Bilirubin 0.1 L, AST 16, ALT 24, Alkaline Phosphatase 94, Total Protein 8.2, Albumin 3.3 L, Globulin 4.9 H, Albumin/Globulin Ratio 0.7 L, Amylase 40, Lipase 131, WBC 12.7 H, RBC 5.24, Hgb 12.9, Hct 40.2, MCV 76.7 L, RDW 15.4, Plt Count 324, MPV 8.7, Gran % 62.0, Gran # 7.8, Lymphocytes % 32.8, Monocytes % 3.3, Eosinophils % 1.6, Basophils % 0.3, Lymphocytes # 4.2, Monocytes # 0.4, Eosinophils # 0.2, Basophils # 0.0, PUBS MCHC 32.1, MCH 24.6 L 05/24/17 1710: Urine Color YELLOW, Urine Appearance SL CLOUDY, Urine pH 6.0, Ur Specific [place] 1.025, Urine Protein NEGATIVE, Urine Ketones NEGATIVE, Urine Blood NEGATIVE, Urine Nitrate NEGATIVE, Urine Bilirubin NEGATIVE, Urine Urobilinogen 0.2, Ur Leukocyte Esterase TRACE H, Urine RBC 3-5, Urine WBC 3-5, Ur Squamous Epith Cells 20-50, Urine Bacteria 2+, Urine Glucose NEGATIVE Orders Procedure Date/time Status 12 LEAD EKG-BESSON (INITIAL) 05/24 1732 Active CARDIAC ENZYMES 05/24 172 Complete ELECTROCARDIOGRAM REQUEST 05/24 171 Active CULTURE, URINE 05/24 171 Active URINALYSIS/COMPLETE 05/24 171 Complete URINE 05/24 171 Complete LIPASE 05/24 171 Complete CBC WITH AUTO DIFF 05/24 1710 Complete CHEM 12 PROFILE 05/24 171 Complete AMYLASE 05/24 1710 Complete CM/EKG CM/mule operator Rhythm Normal Sinus Rhythm Rate 88 Ectopy No Comments No acute ischemic changes EKG rate, NSR, rhythm, no evid. of ischemic chgs, no ectopy, normal QRS, normal [place], normal EKG, no EKG for comparison, non-spec. ST/Twave chgs, ST elevation, ST depression, LBBB, RBBB, ectopy, abnormal Q waves Departure Departure Time of Disposition 185 Disposition DC Home or Self Care(routine) Clinical Impression Primary Impression: Chest pain Qualifiers: Chest pain type: unspecified Qualified Code: R07.9 - Chest pain, unspecified Condition STABLE Referrals Maame REID, Fabian CONTRERAS, TIERRA (Family) as scheduled Patient Instructions DI for Chest Pain, DI for Gastroesophageal Reflux Disease ( GERD), Heartburn -- Overview Additional Instructions Please resume the prescription for Nexium (attached) and follow-up with Dr. Isabel within the next 2-3 days. Discharge Counseling Counseled pt/family regarding diagnosis, test results, medications/RX, home care, follow up needs Comment Please resume the prescription for Nexium (attached) and follow-up with Dr. Maame within the next 2-3 days. Prescriptions Current Visit Scripts Esomeprazole Magnesium (Nexium 40MG Cap) 40 MG PO DAILY #30 CAP Ref 5 ED Critical Care Critical Care No at 1114
--- NOTE | 2017-05-24 18:59 | Emergency Room Report ---
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 N Clinical Suspician of Infection? N Mental Status: 1 - Regular (Normal Baseline) Sepsis Risk:Low Sepsis Risk Have you (or family members/close friends) recently traveled outside the [place]? N If Yes, where/when: Have you had exposure to infectious disease within the past month? TB? Other? Specify: Source patient, RN notes reviewed, family, RN/MD Exam Limitations no limitations Comment This is a 27-year-old feel patient with gastric pain, previously diagnosed with gastroesophageal reflux disease/had a hernia/gastritis, not taking her Nexium, radiating to LEFT shoulder, for the past 3 months. ALLERGIES Coded Allergies: sulfamethoxazole (05/24/17) trimethoprim (05/24/17) Home Medications Reported Medications PAROXETINE HCL (Paroxetine Hcl) 20 MG PO DAILY #30 TAB History Medical History General CAD? No Angina: No [place]: No Hypertension? No Hyperlipidemia? No CHF? No DVT? No PE? No COPD? No Asthma? No Anemia? No GERD? No Gastric ulcers? No GI Bleed? No Hernia? No Thyroid Problems? No Hypothyroidism? No CVA? No Seizures? No Diabetes? No Renal Insuffiency? No End Stage Renal Disease? No UTI? No Stones? No BPH? No GB Disease: Yes Nephritic Syndrome? No Asplenia? No Hepatitis? No Sickle Cell Disease? No Arthritis? No Migraines? No Cataracts? No Glaucoma? No MRSA? No HIV? No TB? No Anxiety? No Depression? No Cancer? 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 Family History Family Hx Diabetes Yes CAD No Hypertension Yes Hyperlipidemia No Cancer Yes TB No Social History Smoking Hx Smoker: Unknown if Ever Smoked Tobacco: No Type N/A Packs/day N/A Are you/the child exposed to second-hand smoke: No Alcohol Alcohol: No Review of Systems All Other Systems Reviewed and Negative Gastrointestinal abdominal pain (The gastric area) Musculoskeletal joint pain (LEFT shoulder) Physical Exam Vital Signs Vital Signs Date Time Temp Pulse Resp B/P Pulse O2 O2 Flow FiO2 Ox Delivery Rate 05/24 1910 91 18 125/85 98 05/24 1702 99.0 95 16 98 General Appearance normal appearance, WD/WN, no apparent distress Neck normal inspection, non-tender, supple, full range of motion Respiratory Status Yes: trachea midline, chest symmetrical, non tender chest. No: respiratory distress. Lung Sounds bilateral: normal breath sounds, lungs clear. 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 No Comment On reevaluation patient appears medically stable, clinically improving. Advised patient to follow-up with Dr. Fabian Isabel for mandatory reevaluation within the next 2-3 days. Will restart patient's prescription for PPIs, Nexium, as well as, at this time. Results/Orders Laboratory Tests 05/24/17 1725: Creatine Kinase 176, CK-MB (CK-2) Rel Index 0.3, CK and CKMB Interp < 0.5, Troponin I < 0.02 05/24/17 172: Sodium 138, Potassium 4.4, Chloride 104, Carbon Dioxide 28, BUN 17, Creatinine 0.6, Estimated Creat Clear 369 H, Estimated GFR (MDRD) 122, Glucose 91, Calcium 9.1, Total Bilirubin 0.1 L, AST 16, ALT 24, Alkaline Phosphatase 94, Total Protein 8.2, Albumin 3.3 L, Globulin 4.9 H, Albumin/Globulin Ratio 0.7 L, Amylase 40, Lipase 131, WBC 12.7 H, RBC 5.24, Hgb 12.9, Hct 40.2, MCV 76.7 L, RDW 15.4, Plt Count 324, MPV 8.7, Gran % 62.0, Gran # 7.8, Lymphocytes % 32.8, Monocytes % 3.3, Eosinophils % 1.6, Basophils % 0.3, Lymphocytes # 4.2, Monocytes # 0.4, Eosinophils # 0.2, Basophils # 0.0, PUBS MCHC 32.1, MCH 24.6 L 05/24/17 1710: Urine Color YELLOW, Urine Appearance SL CLOUDY, Urine pH 6.0, Ur Specific [place] 1.025, Urine Protein NEGATIVE, Urine Ketones NEGATIVE, Urine Blood NEGATIVE, Urine Nitrate NEGATIVE, Urine Bilirubin NEGATIVE, Urine Urobilinogen 0.2, Ur Leukocyte Esterase TRACE H, Urine RBC 3-5, Urine WBC 3-5, Ur Squamous Epith Cells 20-50, Urine Bacteria 2+, Urine Glucose NEGATIVE Orders Procedure Date/time Status 12 LEAD EKG-BESSON (INITIAL) 05/24 1732 Active CARDIAC ENZYMES 05/24 172 Complete ELECTROCARDIOGRAM REQUEST 05/24 171 Active CULTURE, URINE 05/24 171 Active URINALYSIS/COMPLETE 05/24 171 Complete URINE 05/24 171 Complete LIPASE 05/24 171 Complete CBC WITH AUTO DIFF 05/24 1710 Complete CHEM 12 PROFILE 05/24 171 Complete AMYLASE 05/24 1710 Complete CM/EKG CM/systems development manager Rhythm Normal Sinus Rhythm Rate 88 Ectopy No Comments No acute ischemic changes EKG rate, NSR, rhythm, no evid. of ischemic chgs, no ectopy, normal QRS, normal OR, normal EKG, no EKG for comparison, non-spec. ST/Twave chgs, ST elevation, ST depression, LBBB, RBBB, ectopy, abnormal Q waves Departure Departure Time of Disposition 185 Disposition DC Home or Self Care(routine) Clinical Impression Primary Impression: Chest pain Qualifiers: Chest pain type: unspecified Qualified Code: R07.9 - Chest pain, unspecified Condition STABLE Referrals Maame REID, Fabian CONTRERAS, TIERRA (Family) as scheduled Patient Instructions DI for Chest Pain, DI for Gastroesophageal Reflux Disease ( GERD), Heartburn -- Overview Additional Instructions Please resume the prescription for Nexium (attached) and follow-up with Dr. Isabel within the next 2-3 days. Discharge Counseling Counseled pt/family regarding diagnosis, test results, medications/RX, home care, follow up needs Comment Please resume the prescription for Nexium (attached) and follow-up with Dr. Maame within the next 2-3 days. Prescriptions Current Visit Scripts Esomeprazole Magnesium (Nexium 40MG Cap) 40 MG PO DAILY #30 CAP Ref 5 ED Critical Care Critical Care No at 1110
[2017-05-24 19:10] VITALS: BP 125/85
== END 2017-05-24 19:12 | disposition home or self-care (01) ==
LOC: ER 16:59
PROVIDERS: Emergency Medicine
DX: R07.9 Chest pain, unspecified (principal); R10.13 Epigastric pain; K21.9 Gastro-esophageal reflux disease without esophagitis; M25.512 Pain in left shoulder